=== PATIENT | male | born 1955 | race Hispanic/Latino ===

== ENCOUNTER 2024-12-09 00:52 | Day surgery (SDC) | payer MEDICARE, SELFPAY ==
[2024-11-30 13:28] VITALS: BMI 27.3
--- OUTSIDE RECORDS SUMMARY | 2024-12-09 00:56 | XMS_ITS | Referral Summary ---
Author Organization [facility] [address] Address [address] [facility] [place] [address] Care Team Providers Care Bottle Gauger Name Role Phone Brayden Babcock MD Primary Care Provider [phone] Allergies No known active allergies Medications cloNIDine (CATAPRES) 0.1 mg tablet Take 0.1 mg by mouth 2 (two) times a day 10/31/2018 Active amlodipine-olmes morgan (LAURA) 5-40 mg per tablet Take by mouth daily 10/31/2018 Active Active Problems Problem Noted Date Diagnosed Date Essential hypertension 01/04/2019 WALLIS (nonalcoholic steatohepatitis) 01/04/2019 Assessment & Plan (01/04/2019 6:26 PM CDT): The histologic findings are consistent with non-alcoholic steatohepatitis. Although he does not fill the features of the usual demographic, he has gained some weight. The elevated antinuclear antibody suggest a possible diagnosis of autoimmune hepatitis. However, there is no evidence of the typical histologic finding seen with autoimmune hepatitis. Antinuclear antibody is present approximately 15% of the population, some of whom never had any evidence of autoimmune disease. We discussed the cause of increased hepatic fat, i.e., inadequate metabolism of fat delivered to the liver. When associated with elevated transaminases, this is non-alcoholic steatohepatitis. This inflammation can lead to scar tissue or cirrhosis of the liver in approximately 30% of cases. Patients with cirrhosis are at risk for developing complications of portal hypertension, liver failure, , liver cancer, and/or the need for a liver transplant. Fat in the absence of elevated transaminases is non-alcoholic fatty liver disease. Routinely, this is not associated with inflammation or progressive hepatic fibrosis. The most effective treatment of fatty liver is weight loss, ideally achieved through a combination of caloric restriction and exercise. Aerobic exercise for 4 hours a week can accelerate fat metabolism and lead to improvement of liver tests. Weight loss of 5-10% of the current body weight usually leads to improvement in liver tests, liver inflammation, and a decrease in hepatic fibrosis. He will return on an annual basis or when clinically indicated. CATHY (obstructive sleep apnea) 01/04/2019 Social History Tobacco Use Types Packs/Day Years Used Date Smoking Tobacco: Never Smokeless Tobacco: Never Alcohol Use Standard Drinks/Week Comments Never 0 (1 standard drink = 0.6 oz pur e alcohol) AUDIT-C Answer Date Recorded Frequency of Alcohol Consumption Never 01/04/2019 Average Number of Drinks Not on file 019 Frequency of Binge Drinking Not on file 10/2018 Personal Safety Answer Date Recorded Getting School Help Needed Not on file 12/20 Sex and Gender Information Value Date Recorded Sex Assigned at Not on file Legal Sex Male 8:21 AM CDT Gender Identity Male 01/04/2019 9:46 AM CDT Sexual Orientation Not on file 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 Not on file Not on file Not on f ile Last Filed Vital Signs Vital Sign Reading Time Taken Comments Blood Pressure 136/94 01/04/2019 10:34 AM CDT Pulse 73 01/04/2019 10:34 AM CDT Temperature 36.5 C (97.7 F) 03/15/2020 11:11 AM CDT Respiratory Rate - - Oxygen Saturation - - Inhaled Oxygen Concentration - - Weight 94.3 kg (208 lb) 01/04/2019 10:34 AM CDT Height 172.7 cm (5' 8 ) 01/04/2019 10:34 AM CDT Body Mass Index 31.63 01/04/2019 10:34 AM CDT Plan of Treatment Not on file Insurance [facility] Care Teams Bottle Gauger Relationship Specialty Start Date End Date Brayden Babcock MD PCP - General Family Medicine 10/07/18
--- OUTSIDE RECORDS SUMMARY | 2024-12-09 00:56 | XMS_ITS | Clinical Summary ---
Author Organization [facility] [address] Address [address] [facility] [place] [address] Care Team Providers Care Garnett Machine Operator Name Role Phone Brayden Babcock MD Primary Care Provider [phone] Allergies No known active allergies Medications cloNIDine [...] clinically indicated. 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 Care Teams Garnett Machine Operator Relationship Specialty Start Date End Date Brayden Babcock MD PCP - General Family Medicine 10/07/18
[2024-12-09 10:48] VITALS: BP 141/88; PULSE 60; RESP 16; TEMP 36.6; O2SAT 100; BMI 28.4
[2024-12-09] MEDS: LACTATED RINGERS 1,000 ML 150 ML IV CONT (10:57)
--- NOTE | 2024-12-09 11:16 | PM.HPGS ---
History of Present Illness History of Present Illness Consent: Risks, benefits, and alternatives have been discussed and questions answered. Patient agrees to proceed with procedure. Chief complaint: screening colon Narrative: Oswaldo Tineo is a 69 year old male here for screening colonoscopy, last one more than 10 years ago Review of Systems Review of Systems: All systems reviewed & are unremarkable except as noted in HPI and below PMFSH Past Medical History Medical History Papilloma of breast Cirrhosis Ureteral stricture Surgical History Surgical History H/O prostate biopsy Negative Family History Family History Mother Family history of primary malignant neoplasm of liver Social History Social History Smoking status: Never smoker Alcohol intake: never Substance use: never Substance use type: does not use Lack of Transportation: No Lack of Food: Never True Current Housing: I Have Housing Concerned About Future Housing: No Difficulty Paying Gas/Electric Bills: No Difficulty Paying for Meds: No Currently Unemployed: No Education: Bachelor's Degree Difficulty w/ Childcare or Family Care: No Living arrangements: with family Spiritual care concerns: No Meds Home Medications and Allergies Home Medications ?Medication ?Instructions ?Recorded ?Confirmed ?Type clonidine HCl 0.1 mg tablet 0.05 mg (1/2 x 0.1 mg) PO BID #90 09/16/24 12/09/24 Rx tabs levothyroxine 88 mcg tablet 88 mcg PO DAILY #90 tabs 09/16/24 12/09/24 Rx (Synthroid) amlodipine 5 mg tablet See Rx Instructions .Route 10/25/24 12/09/24 Rx .COMPLEX #90 tabs olmesartan 40 mg tablet See Rx Instructions .Route 10/25/24 12/09/24 Rx .COMPLEX #90 tabs Allergies Allergy/AdvReac Type Severity Reaction Status Date / Time No Known Allergies Allergy Verified 12/09/24 10:47 Vital Signs Vital Signs - 24 hr 12/09/24 10:48 Temperature 97.8 F Pulse Rate 60 Respiratory Rate 16 Blood Pressure 141/88 H Pulse Oximetry 100 Oxygen Delivery Room Air Exam Const: General: comfortable and no acute distress HENMT: Face/Nose/Sinus: Normal nares present Eyes: General: appearance normal, both eyes and all related structures Neck: Neck: no JVD Resp: Auscultation: clear to auscultation bilaterally Cardio: Rate: regular rate Rhythm: regular rhythm GI: Inspection: non-distended GI Palp: Yes Soft to palpation Skin: General skin exam: normal color Neuro: Speech: normal speech Extrem: General: normal to inspection Psych: Mental Status: mental status grossly normal Assessment and Plan Assessment and plan (1) Colon cancer screening: Code(s): Z12.11 - Encounter for screening for malignant neoplasm of colon Status: Acute Assessment and Plan: colonoscopy
--- NOTE | 2024-12-09 11:17 | P.PNAN_ITS ---
Anes - Initial Pre Proc Eval Procedure: Operation Date: 12/09/24 12:30 Proposed Procedures p Screening Colonoscopy - Tony Valladares MD Date/Time: 12/09/24 11:17 Surgeon: Tony Valladares MD Pre Op Diagnosis: screening colon Patient Data Age: 69 Gender: M Height: 1.73 m Weight: 84.9 kg Last Vital Signs Temp 36.6 C 12/09/24 10:48 Pulse 60 12/09/24 10:48 Resp 16 12/09/24 10:48 BP 141/88 H 12/09/24 10:48 Pulse Ox 100 12/09/24 10:48 O2 Del Method Room Air 12/09/24 10:48 Allergies Allergy/AdvReac Type Severity Reaction Status Date / Time No Known Allergies Allergy Verified 12/09/24 10:47 Home Medications ?Medication ?Instructions ?Recorded ?Confirmed ?Type clonidine HCl 0.1 mg tablet 0.05 mg (1/2 x 0.1 mg) PO BID #90 09/16/24 12/09/24 Rx tabs levothyroxine 88 mcg tablet 88 mcg PO DAILY #90 tabs 09/16/24 12/09/24 Rx (Synthroid) amlodipine 5 mg tablet See Rx Instructions .Route 10/25/24 12/09/24 Rx .COMPLEX #90 tabs olmesartan 40 mg tablet See Rx Instructions .Route 10/25/24 12/09/24 Rx .COMPLEX #90 tabs Patient hx anesthesia problems: none Family hx anesthesia problems: none Results Review: All pre-operative results and documents have been reviewed as part of the pre- operative evaluation. [facility] Past Medical History Medical History Papilloma of breast Cirrhosis Ureteral stricture Surgical History Surgical History H/O prostate biopsy Negative Family History Family History Mother Family history of primary malignant neoplasm of liver Social History Social History Smoking status: Never smoker Alcohol intake: never Substance use: never Substance use type: does not use Lack of Transportation: No Lack of Food: Never True Current Housing: I Have Housing Concerned About Future Housing: No Difficulty Paying Gas/Electric Bills: No Difficulty Paying for Meds: No Currently Unemployed: No Education: Bachelor's Degree Difficulty w/ Childcare or Family Care: No Living arrangements: with family Spiritual care concerns: No Anes - Eval Final PreProcedure Day of Procedure 12/09/24 11:17 Patient weight: overweight Heart: regular rate and rhythm Lungs: clear to auscultation Airway: Mallampati scale class II Neurological: alert and oriented Last oral intake: >/= 8 hours ASA classification: II Emergent: no Anesthetic plan: proceed Anesthesia type and monitoring: general GIVS and standard monitoring Results Review: All pre-operative results and documents have been reviewed as part of the pre- operative evaluation. Informed Consent: The patient's anesthetic plan and its attendant risks and benefits were discussed with the patient/family/POA. Questions were solicited and answers provided to the satisfaction of the patient/family/POA.
--- NOTE | 2024-12-09 11:19 | P.PNAN_ITS ---
Anes - Eval Final PreProcedure Day of Procedure 12/09/24 11:19 Patient weight: overweight Heart: regular rate and rhythm Lungs: clear to auscultation Airway: Mallampati scale class II Neurological: alert and oriented Last oral intake: >/= 8 hours ASA classification: II Emergent: no Anesthetic plan: proceed Anesthesia type and monitoring: general GIVS and standard monitoring Results Review: All pre-operative results and documents have been reviewed as part of the pre- operative evaluation. Informed Consent: The patient's anesthetic plan and its attendant risks and benefits were discussed with the patient/family/POA. Questions were solicited and answers provided to the satisfaction of the patient/family/POA.
[2024-12-09 11:32] VITALS: BP 153/92; PULSE 63; RESP 18; O2SAT 93
[2024-12-09 11:42] VITALS: BP 120/78; PULSE 60; RESP 20; O2SAT 100
[2024-12-09 11:52] VITALS: BP 127/84; PULSE 56; RESP 17; O2SAT 99
== END 2024-12-09 12:01 | disposition home or self-care (01) ==
PROVIDERS: PCP Family Medicine; Referring Provider Family Medicine; Visit Provider Internal Medicine Gastroenterology
PROC: 0DJD8ZZ Inspection of Lower Intestinal Tract, Via Natural or Artificial Opening Endoscopic (ICD-10-PCS; CPT 45378; principal; 2024-12-09 12:30)
DX: Z12.11 Encounter for screening for malignant neoplasm of colon (principal); D12.2 Benign neoplasm of ascending colon; K64.8 Other hemorrhoids
CPT/HCPCS: 45385; 88305; J2704; J7120